=== PATIENT | female | born 1980 | race African-American/Black ===

== ENCOUNTER 2017-09-30 00:21 | Emergency (ER) | payer OTHER ==
--- NOTE | 2017-09-30 00:39 | PDOC ---
Attending Attestation - Resident Resident Name: Yves Cote - ED Attending Attestation I have performed the following: I have examined & evaluated the patient, The case was reviewed & discussed with the resident, I agree w/resident's findings & plan, Exceptions are as noted - Physicial Exam PE: GENERAL: Awake, alert, and fully oriented, in no acute distress HEAD: No signs of trauma EYES: PERRLA, EOMI, sclera anicteric, conjunctiva clear ENT: Auricles normal inspection, hearing grossly normal, nares patent, oropharynx clear without exudates. Moist mucosa. Swelling overlying the R mandible. +Tenderness to the gingiva around teeth #28 and 30 (29 is s/p extraction). No visible abscess, mass, redness. No tenderness to percussion of the teeth. Extraction site of 29 is tender to palpation (the extraction was done a year ago). NECK: Normal ROM, supple, no lymphadenopathy, JVD, or masses NEUROLOGICAL: Cranial nerves II through XII grossly intact. Normal speech, normal gait SKIN: Warm, Dry, normal turgor, no rashes or lesions noted. - Medical Decision Making Pt with pain to the gums around #28 and #30, as well as at the site of extraction from #29. No drainable abscess at present. Will start on augmentin and give pain medication. F/u at dental urgent care in AM. <Veronica Blackburn - Last Filed: 09/30/17 01:52> - HPI HPI: 09/30/17 02:48 Patient is a 37 year old female with no significant past medical history who present so the ED with complaints of swelling to her right face. Patient reports experiencing right sided facial swelling that she states has gradually increased over time. She reports experiencing associated associated subjective fever but denies any tooth pain. Patient reports having a tooth removed in the right side of mouth bu states it was done 1 year ago. Denies chest pain, sob. Denies fevers, chills. Denies nausea, vomiting. Denies contact with sick individuals, out of state travelling. Denies diarrhea, constipation. Denies dysuria, hematuria. Denies any other symptoms. Allergies: Haile inhibitors. Social history: No smoking. No alcohol. No illicit drugs. Surgical history: None PMD: Dr. Shawn Parikh <David Ng - Last Filed: 09/30/17 02:48>
[2017-09-30 00:45] VITALS: BP 137/75; PULSE 88; TEMP 98.9; BMI 34.3
--- NOTE | 2017-09-30 00:54 | PDOC ---
History of Present Illness - General Chief Complaint: Toothache Stated Complaint: FACIAL SWELLING Time Seen by Provider: 09/30/17 00:31 History Source: Patient Exam Limitations: No Limitations - History of Present Illness Initial Comments: 09/30/17 00:48 Patient is a 37F with no significant medical history here today complaining of swelling to her right face. Endorses subjective fever, denies chills. Denies nausea, vomiting. Denies toothache. Patient states she had a tooth removed in the area but did this was one year ago. Denies neck pain, chest pain, and shortness of breath. Denies drooling, difficulty breathing. Denies exposure to known allergens. Past History - Past Medical History Allergies/Adverse Reactions: Allergies Allergy/AdvReac Type Severity Reaction Status Date / Time KARL Inhibitors Allergy Intermediate Verified 09/30/17 00:35 Home Medications: Ambulatory Orders Amoxicillin/Potassium Clav [Augmentin 875-125 Tablet] 1 each PO BID #14 tablet 09/30/17 Anemia: No Asthma: No Cancer: No Cardiac Disorders: No CVA: No COPD: No CHF: No Dementia: No Diabetes: No GI Disorders: No Disorders: No HTN: Yes Hypercholesterolemia: Yes Liver Disease: No Seizures: No Thyroid Disease: No - Surgical History Abdominal Surgery: No Appendectomy: No Cardiac Surgery: No Cholecystectomy: No Lung Surgery: No Neurologic Surgery: No Orthopedic Surgery: No - Suicide/Smoking/Psychosocial Hx Smoking History: Never smoked Have you smoked in the past 12 months: No Information on smoking cessation initiated: No Hx Alcohol Use: No Drug/Substance Use Hx: No Substance Use Type: None Hx Substance Use Treatment: No Review of Systems - Review of Systems Comments:: 09/30/17 00:51 GENERAL/CONSTITUTIONAL: +fever No chills. No weakness. HEAD, EYES, EARS, NOSE AND THROAT: No change in vision. No sore throat. CARDIOVASCULAR: No chest pain or shortness of breath RESPIRATORY: No cough, wheezing, or hemoptysis. GASTROINTESTINAL: No nausea, vomiting, diarrhea or constipation. GENITOURINARY: No dysuria, frequency, or change in urination. MUSCULOSKELETAL: No joint or muscle swelling or pain. No neck or back pain. SKIN: No rash NEUROLOGIC: No headache, vertigo, loss of consciousness, or change in strength/ sensation. ENDOCRINE: No increased thirst. No abnormal weight change HEMATOLOGIC/LYMPHATIC: No anemia, easy bleeding, or history of blood clots. ALLERGIC/IMMUNOLOGIC: No hives or skin allergy. *Physical Exam - Vital Signs Last Vital Signs Temp Pulse Resp BP Pulse Ox 98.9 F 88 20 137/75 99 09/30/17 00:36 09/30/17 00:36 09/30/17 00:36 09/30/17 00:36 09/30/17 00:36 - Physical Exam Comments: 09/30/17 00:51 GENERAL: Awake, alert, and fully oriented, in no acute distress HEAD: No signs of trauma, normocephalic, atraumatic EYES: PERRLA, EOMI, sclera anicteric, conjunctiva clear ENT: Auricles normal inspection, hearing grossly normal, nares patent, oropharynx clear without exudates. Tooth 30 missing, no tenderness along teeth. Tender along inner aspect of right cheek and right gums. No stone visualized. 2x2 cm area of swelling. NECK: Normal ROM, supple, no lymphadenopathy, JVD, or masses. No crepitus or swelling. LUNGS: No distress, speaks full sentences, clear to auscultation bilaterally HEART: Regular rate and rhythm, normal S1 and S2, no murmurs, rubs or gallops, peripheral pulses normal and equal bilaterally. ABDOMEN: Soft, nontender, normoactive bowel sounds. No guarding, no rebound. No masses EXTREMITIES: Normal inspection, Normal range of motion, no edema. No clubbing or cyanosis. NEUROLOGICAL: Cranial nerves II through XII grossly intact. Normal speech, normal gait, no focal sensorimotor deficits SKIN: Warm, Dry, normal turgor, no rashes or lesions noted. Medical Decision Making - Medical Decision Making 09/30/17 00:52 Patient is a 37F with no significant medical history here today with dental infection. Non toxic appearing, no pus expressed. Will cover with abx and treat with augmentin. Will refer to urgent care dental. *DC/Admit/Observation/Transfer Diagnosis at time of Disposition: Dental infection - Discharge Dispostion Condition at time of disposition: Good Decision to Admit order: No - Prescriptions Prescriptions: Amoxicillin/Potassium Clav [Augmentin 875-125 Tablet] 1 each PO BID #14 tablet - Referrals Referrals: Kati Escobar MD [Primary Care Provider] - - Patient Instructions Printed Discharge Instructions: DI for Dental Pain Additional Instructions: Please follow up with a Dental Urgent Care. There are locations at: [facility] [address] [facility] [id number] [facility] [address] [facility] [id number] - Post Discharge Activity
[2017-09-30] MEDS ORDERED: AMOX TR/POT CLAV 875MG/125MG TABLETS (FP) PO ONE (01:30)
[2017-09-30] MEDS ORDERED: AMOX TR/POT CLAV 875MG/125MG TABLETS (FP) ONE (01:34)
== END 2017-09-30 01:41 | disposition home or self-care (01) ==
LOC: JER 00:21
DX: K04.7 Periapical abscess without sinus (principal); I10 Essential (primary) hypertension; E78.00 Pure hypercholesterolemia, unspecified
CPT/HCPCS: 99282-25

== ENCOUNTER → 2022-03-31 | Day surgery (SDC) | payer OTHER | END | disposition home or self-care (01) | LOC: JRADUS-SUR 09:58 | PROVIDERS: ATTEND Physician Assistant | PROC: 0H9T3ZX Drainage of Right Breast, Percutaneous Approach, Diagnostic (ICD-10-PCS; principal; 2022-03-31) | DX: N64.89 Other specified disorders of breast (principal) | CPT/HCPCS: 19083; 77065-TC; 87899; 88305-TC; 88341-TC; 88342-TC; A4648 ==